=== PATIENT | male | born 1965 | race African-American/Black ===

== ENCOUNTER 2020-03-14 08:36 | Emergency (ER) | payer SELFPAY ==
[~2020-03-14] VITALS: Ht 185.4 cm; Wt 90.7 kg
[2020-03-14 08:53] VITALS: BP 131/71
--- NOTE | 2020-03-14 08:57 | NUR ---
Pt to tent to wait to be seen.
--- NOTE | 2020-03-14 09:28 | NUR ---
54 y/o male from home c/o dry cough x 3 days. Pt states he was tested for covid and awaiting results. Denies SOB/chest pain. RR even and unlabored. VSS medhx: denies
--- NOTE | 2020-03-14 09:30 | NUR ---
Covid swab collected and walked to lab.
[2020-03-14 10:28] VITALS: BP 131/71
--- NOTE | 2020-03-14 10:29 | NUR ---
Patient discharged with v/s stable. Written and verbal after care instructions given and explained. Patient alert, oriented and verbalized understanding of instructions. Ambulatory with steady gait. All questions addressed prior to discharge. ID band removed. Patient advised to follow up with PMD. Rx of albuterol 90mcg and Tessalon Perles 100mg given. Patient educated on indication of medication including possible reaction and side effects. Opportunity to ask questions provided and answered.
== END 2020-03-14 10:29 | disposition home or self-care (01) ==
LOC: MED 08:36
DX: U07.1 COVID-19 (principal)
CPT/HCPCS: 71045; 99284; U0003